=== PATIENT | male | born 1950 | race Caucasian/White ===

== ENCOUNTER 2016-09-08 11:15 | Observation (INO) | payer MEDICARE ==
[~2016-09-08] VITALS: Ht 182.9 cm; Wt 82.2 kg
[~2016-09-08 11:15] MED LIST: MULT1TAB84 PO; TRAM50TA PO; VESI5TAB PO; XIFA550T4 PO; [UNRECOGNIZED DRUG - OTHER]
[2016-09-08] MEDS ORDERED: SODIUM CHLORID 0.9% 500 ML IV PRN (11:45)
[2016-09-08] MEDS ORDERED: POVIDONE IODINE 5% (ANTISEPSIS KIT) 4 APPLICATIONS EACH NARE PRN (11:45)
[2016-09-08] MEDS ORDERED: INSULIN HUMAN REGULAR 1,000 UNITS/10 ML VIAL SQ PRN (11:45)
[2016-09-08] MEDS ORDERED: LACTATED RINGER'S 1000 ML IV PRN (11:45)
[2016-09-08] MEDS ORDERED: CHLORHEXIDINE GLUCONATE 2 % 1 PACK (2 CLOTHS) TOPICAL PRN (11:45)
[2016-09-08] MEDS ORDERED: METOPROLOL TARTRATE 25 MG TAB PO PRN (11:45)
[2016-09-08] MEDS ORDERED: MULTTAB67 PO (11:46)
[2016-09-08] MEDS ORDERED: ceFAZolin 2 GM PREMIX 50 ML IV SCH (12:00)
[2016-09-08 12:13] VITALS: BP 120/73; PULSE 71; RESP 18; TEMP 97.5; O2SAT 99
[2016-09-08 12:40] LABS: AUTOMATED NEUTROPHIL # 0.8 TH/MM3 (1.8-7.7); BASOPHIL % 1.9 % (0.0-2.0); EOSINOPHIL # 0.1 TH/MM3 (0-0.4); EOSINOPHIL % 6.9 % (0.0-4.0); HEMATOCRIT 27.3 % (39.0-51.0); LYMPH % 25.9 % (9.0-44.0); LYMPHOCYTE # 0.4 TH/MM3 (1.0-4.8); MEAN CORPUSCULAR HGB CONC 35.1 % (32.0-36.0); NEUT % 48.3 % (16.0-70.0); PLATELET COUNT 65 TH/MM3 (150-450); RED CELL DISTRIBUTION WIDTH 16.4 % (11.6-17.2); WHITE BLOOD COUNT 1.7 TH/MM3 (4.0-11.0)
[2016-09-08 12:42] LABS: HEMO FLAGS AUTO DIFF
[2016-09-08] MEDS ORDERED: SODIUM BICARBONATE 8.4% INJ 50 ML ONE (12:46)
[2016-09-08] MEDS ORDERED: LIDOCAINE 2%/EPINEPHrine 1:100,000 30ML MDV ONE (12:50)
[2016-09-08] MEDS ORDERED: DEXAMETHASONE SOD PHOS 4 MG/ML VIAL ONE (13:13)
[2016-09-08] MEDS ORDERED: FAMOTIDINE 20 MG/2 ML VIAL ONE (13:13)
[2016-09-08] MEDS ORDERED: MIDAZOLAM HCL 2 MG/2 ML VIAL ONE ×2 (13:14→15:16)
[2016-09-08 13:38] LABS: BANDS 1 % (0-6); BASOPHILS 2 % (0-2); EOSINOPHILS 4 % (0-4); POLYS (SEG NEUTROPHILS) 59 % (16-70); WBC DIFF SAMPLE 100
[2016-09-08 13:39] LABS: PLATELET ESTIMATE SMEAR LOW (NORMAL); PLATELET MORPHOLOGY NORMAL (NORMAL); SCAN/DIFF FINAL DIFF MANUAL
[2016-09-08] MEDS ORDERED: BUPIVACAINE/EPINEPHRINE 0.25% 50 ML VIAL INFIL ONE (13:49)
[2016-09-08] MEDS ORDERED: PROPOFOL 200 MG/20 ML AMP IV ONE (14:56)
[2016-09-08] MEDS ORDERED: LACTATED RINGER'S 1000 ML INJ 1,000 ML IV ONE (14:57)
[2016-09-08] MEDS ORDERED: PHENYLEPH/NS 1000 MCG/10 ML SYR IV ONE (14:57)
[2016-09-08] MEDS ORDERED: SODIUM CHLORIDE 0.9% FLUSH 5 ML FLUSH IVF PRN (15:00)
[2016-09-08] MEDS ORDERED: diphenhydrAMINE HCL 25 MG CAP PO PRN (15:00)
[2016-09-08] MEDS ORDERED: HYDROmorphone HCL PF 1 MG/ML VIAL IV PRN (15:00)
[2016-09-08] MEDS ORDERED: Post-op Orders (for Pharmacy) MISC XX ONE (15:00)
[2016-09-08] MEDS ORDERED: NALOXONE HCL 0.4 MG/ML AMP IV PRN (15:00)
[2016-09-08] MEDS ORDERED: ONDANSETRON HCL 4 MG/2 ML VIAL IV PRN (15:00)
[2016-09-08] MEDS ORDERED: DO NOT ADM ANY ANTICOAGULANT DRUGS PRN (15:05)
[2016-09-08] MEDS ORDERED: traMADol HCL 50 MG TAB PO PRN (15:15)
[2016-09-08] MEDS ORDERED: fentaNYL CITRATE 250 MCG/5 ML AMP ONE (15:16)
[2016-09-08 17:21] VITALS: BP 128/82; PULSE 77; RESP 18; TEMP 98.6; O2SAT 97
[2016-09-08] MEDS: MORPHINE SULFATE 4 MG/ML INJ IV PUSH PRN ×2 (18:25→23:48)
[2016-09-08 20:00] VITALS: BP 116/62; PULSE 93; RESP 20; TEMP 96.3; O2SAT 97
[2016-09-08] MEDS: RIFAXIMIN 550 MG TAB PO SCH (20:17)
[2016-09-08] MEDS: SODIUM CHLORIDE 0.9% FLUSH 5 ML FLUSH IVF SCH (20:19)
[2016-09-08 21:00] VITALS: BP 108/61; PULSE 92; RESP 20; TEMP 96.7; O2SAT 96
[2016-09-09] VITALS: BP 106/59; PULSE 82; RESP 20; TEMP 96.6; O2SAT 96
[2016-09-09 04:00] VITALS: BP 99/54; PULSE 74; RESP 18; TEMP 97; O2SAT 96
[2016-09-09 06:30] VITALS: BP 111/69; PULSE 71; RESP 18; O2SAT 98
[2016-09-09] MEDS: MORPHINE SULFATE 4 MG/ML INJ IV PUSH PRN (06:32)
--- NOTE | 2016-09-09 06:58 | MP ---
cc: KATHLEEN DELVALLE M.D. DATE OF SURGERY 09/08/2016 PREOPERATIVE DIAGNOSES 1. Symptomatic recurrent left inguinal hernia. 2. History of liver dysfunction with ascites. POSTOPERATIVE DIAGNOSES 1. Symptomatic recurrent indirect left inguinal hernia. 2. History of liver dysfunction with ascites. PROCEDURE PERFORMED Open left inguinal hernia repair (primary repair). SURGEON Kathleen Delvalle MD ANESTHESIA General endotracheal. [employer] HELPER Elida Medina MS3 ANESTHESIA General endotracheal. COMPLICATIONS None. INDICATIONS FOR PROCEDURE Mr. Liu is a pleasant 66-year-old gentleman who developed an enlarging symptomatic left inguinal hernia which was recurrent. His history is significant for liver dysfunction and ascites. Initially the patient required extensive diuresis and paracentesis to control his disease. Over the last several years he has been well controlled without any therapy. I fixed a right inguinal hernia on him several years ago and he did well. He now presented with a recurrent left inguinal hernia. His hernia had been [place] years ago. Apparently this was a tissue repair due to his liver disease. The patient initially was found have a large hydrocele on exam but this then converted to an inguinal hernia with small bowel noted be within the left hemiscrotum. We discussed elective repair and he was agreeable. He accepted that he was high risk for the surgical procedure due to his medical comorbidities. He states the pain and swelling was unbearable and he accepted that he may suffer significant complications and even from the repair. DETAILS The patient was identified, brought to the operating room and placed supine on the operating table. After adequate general endotracheal anesthesia was achieved, the abdomen, left groin and genitals were all prepped and draped in standard surgical fashion. 0.25% Marcaine was injected in the skin and subcutaneous tissue in the left groin. A diagonal incision was made in the left groin. Dissection was carried down through the subcutaneous tissue, through Sarath's fascia and into the external oblique which was significantly scarred from his previous repair. Using a careful blunt and sharp dissection we were able to isolate out the cord structures in the hernia sac. The hernia sac was noted to be densely adherent to the cord structures. It was carefully followed back to the internal ring where it was meticulously off of the cord structures. The cord structures were encircled with a Alison drain and kept out of the operative field. The hernia sac was opened and found containing clear yellow fluid which was suctioned out. The hernia sac was then twisted and ligated at its space with a 2-0 Vicryl suture. The distal sac was transected and sent for pathology. The proximal sac retracted back into the abdominal cavity. Attention was now directed to repair. Because of the patient's extensive comorbidities and high risk for infection, I elected not to use a mesh. We therefore tightened the internal ring using a 0 Prolene suture interrupted x 3, closing the patient's previous scar tissue down and tightening the ring around the cord structures. The cord was allowed to pass freely through the ring but it was tightened out laterally where the defect was. We then over-sewed the external oblique over top of it using a 2-0 Vicryl as well. With this the defect was well covered in two layers. The cord structures were then returned to their anatomic position. Sarath's fascia was closed over the cord structures using a 3-0 Vicryl. The subcutaneous tissue was then closed with 3-0 Vicryl and the skin was closed with a 4-0 Vicryl. 0.25% Marcaine was injected in all layers during the closure. Sterile dressings were applied and the patient was awakened and brought to recovery in stable condition. MD CAROL Waddell/JONY /3:11 PM /6:49 AM
[2016-09-09 08:00] VITALS: BP 115/58; PULSE 73; RESP 19; TEMP 96.9; O2SAT 97
[2016-09-09] MEDS: RIFAXIMIN 550 MG TAB PO SCH (08:52)
[2016-09-09] MEDS: SODIUM CHLORIDE 0.9% FLUSH 5 ML FLUSH IVF SCH (08:52)
[2016-09-09] MEDS ORDERED: MULTIVITAMIN TAB PO SCH (09:00)
[2016-09-09] MEDS ORDERED: OXYC1CAP PO (10:33)
== END 2016-09-09 11:12 | disposition home or self-care (01) ==
LOC: HSDC 11:15 → HSDI 15:03 → N07B 17:09
PROVIDERS: ADMIT Surgery Trauma Surgery; ATTEND Surgery Trauma Surgery
DX: K40.91 Unilateral inguinal hernia, without obstruction or gangrene, recurrent (principal); G62.9 Polyneuropathy, unspecified; K21.9 Gastro-esophageal reflux disease without esophagitis; K74.60 Unspecified cirrhosis of liver; B19.20 Unspecified viral hepatitis C without hepatic coma; D64.9 Anemia, unspecified; Z85.51 Personal history of malignant neoplasm of bladder; Z88.5 Allergy status to narcotic agent; Z88.8 Allergy status to other drugs, medicaments and biological substances
CPT/HCPCS: 49520; 85007; 85027; 88302; 94150; 96374; 96376; G0378; J0690; J1100; J2250; J2270; J2370; J3010; J7120